=== PATIENT | male | born 1960 ===

== ENCOUNTER 2016-09-02 08:07 | Emergency (ER) | payer MEDICARE ==
[2016-09-02 08:20] VITALS: BP 133/65; PULSE 87; TEMP 97.6; BMI 28.3
== END 2016-09-02 09:59 | disposition left against medical advice (07) ==
LOC: ED 08:07
DX: R05 Cough (principal)
CPT/HCPCS: 99281

== ENCOUNTER 2016-09-12 17:08 | Emergency (ER) | payer MEDICARE ==
[2016-09-12 17:40] VITALS: BMI 29.2
[2016-09-12 17:41] VITALS: TEMP 99
[2016-09-12 18:00] LABS: AUTOMATED MONOCYTE 8.8 % (3-10); AUTOMATED NEUTROPHIL 65.2 % (45-76); MPV 7.8 fL (7.4-10.4)
[2016-09-12 18:08] LABS: VENOUS BEb 0.4 (+/- 2); VENOUS TCO2 29.4 MMOL/L (23-27)
[2016-09-12] MEDS ORDERED: REGULAR INSULIN 100 UNITS/ML - 3 ML VIAL SQ ONE ×2 (18:09→19:33)
[2016-09-12] MEDS ORDERED: REGULAR INSULIN 100 UNITS/ML - 3 ML VIAL IV ONE ×2 (18:09→18:16)
[2016-09-12] MEDS ORDERED: Insulin, Regular 100 UNITS in NS 99 ML IV SCH ×2 (18:16)
--- NOTE | 2016-09-12 18:19 | EDPRACDOC ---
- General Information Chief Complaint: Generalized Weakness Mode of Arrival: Car Home Medications: Home Medications Insulin Detemir [Levemir Flextouch] 30 unit SQ DAILY 06/20/15 Nitroglycerin [Nitrostat] 0.4 mg SL [id number] PRN 06/20/15 Pregabalin [Lyrica] 75 mg PO BID 09/19/15 Finasteride [Proscar] 5 mg PO DAILY #30 tablet 11/12/15 Atorvastatin Calcium [Lipitor] 80 mg PO HS #30 tablet 02/29/16 Carvedilol [Coreg] 6.25 mg PO BID #60 tablet 02/29/16 Duloxetine HCl [Cymbalta] 60 mg PO QAM #30 capsule. 02/29/16 Duloxetine [Cymbalta] 30 mg PO HS #30 capsule 02/29/16 Levothyroxine [Synthroid, Levoxyl] 25 mcg PO DAILY #100 tablet 02/29/16 Mirtazapine 15 mg PO HS #30 tablet 02/29/16 Tamsulosin HCl [Flomax] 0.4 mg PO BID #60 capsule 02/29/16 Ticagrelor [Brilinta] 90 mg PO BID #60 tab 02/29/16 Cranberry Fruit Concentrate [Azo Cranberry] 250 mg PO DAILY 09/12/16 Ferrous Sulfate [Iron] 325 mg PO DAILY 09/12/16 Ondansetron [Zofran Odt] 4 mg PO Q6H #20 tab.rapdis 09/12/16 Oxycodone Immediate Release [Oxycodone Immediate Release (OxyIR)] 5 mg PO Q6H PRN #14 tab 09/12/16 Allergies/Adverse Reactions: Allergies Allergy/AdvReac Type Severity Reaction Status Date / Time Penicillins Allergy Mild Rash-Genera Verified 09/12/16 17:36 lized acetaminophen [From Tylenol] Allergy Nausea only Verified 09/12/16 17:36 ibuprofen [From Motrin] Allergy Nausea only Verified 09/12/16 17:36 motrin Allergy Nausea only Uncoded 09/12/16 17:36 - History of Present Illness Complains Of: Reports: High Blood Sugar, Nausea, Polyuria, Polydipsia Relevant History: Reports: IDDM Medication Use: Reports: Normal Blood Glucose Result: 850 Vomiting - TNTC: No Associated Signs and Symptoms: Reports: Other (productive cough of yellow and green sputum.) Abdominal Pain Location: Reports: None Abdominal Pain Quality: Reports: None ED Past Medical History - History Reviewed Yes Nurses notes reviewed and agree except as marked Travel Outside of [place] in the Last 3 Months?: No - Patient Medical History Neurological History: Reports: Cerebrovascular Accident (2004) Cardiac History: Reports: Coronary Artery Disease (Drug-eluting stent in August of 2015 in proximal RCA), Hypertension, Heart Attack (2015), Stress Test (Abnormal), Hypercholesterolemia Respiratory History: Denies: Asthma, COPD GI/ History: Reports: Urinary Tract Infection, BPH (With bladder outlet obstruction and urinary retention). Denies: Ulcer Musculoskeletal History: Reports: Arthritis (right knee, hands) Psychological History: Reports: Depression, Anxiety, Substance Use Disorder (THC ) Systemic History: Reports: Diabetes (IDDM). Denies: Cancer Surgical History: Reports: Other (Back Operation) - Family Medical History Reports: Hypertension, Diabetes, Cancer. Denies: Stroke, Cardiac Disorders - Social Medical History Smoking Status: Former smoker Social History: Reports: Substance Use Disorder (THC) ETOH: None Substance Abuse: None Lives With: Other Lives In: Home EDM Review of Systems - Review of Systems ROS Negative Except as Marked: Yes All systems reviewed and were negative except as marked Constitutional: Weakness. negative: Chills, Fever, Fatigue, Loss of Appetite Eyes: No Symptoms Reported. negative: Redness, Blurred Vision, Double Vision, Discharge, Pain, Light Sensitive, Photophobia Ears: No Symptoms Reported. negative: Pain, Hearing Loss, Drainage, Ear Pulling Throat: No Symptoms Reported. negative: Pain, Swelling Nose: No Symptoms Reported. negative: Congestion, Bleeding, Discharge, Injection, Swelling, Deformity, Ecchymosis, Tender, Abrasion, Laceration Mouth: Dry Mouth. negative: Pain, Drooling Respiratory: No Symptoms Reported. negative: Cough, Brassy Cough, Barky Cough, Shortness of Breath, Wheezing, Hemoptysis Cardiovascular: No Symptoms Reported. negative: Chest Pain, Palpitations, Syncope, Edema, Orthopnea, PND, Skin Mottling, Cyanosis Gastrointestinal: Nausea. negative: Constipation, Diarrhea, Formula Intolerance , Melena, Pain, Vomiting Genitourinary: Frequency. negative: Bleeding, Dysuria, Discharge, Hematuria, , Testicular Pain Neurological: No Symptoms Reported. negative: Headache, Dizziness, Seizure, Numbness, Weakness, Speech Difficulty, Gait Difficulty Musculoskeletal: No Symptoms Reported. negative: Neck, Chestwall, Ribs, Back, Shoulder, Arm, Elbow, Forearm, Wrist, Hand, Pelvis, Hip, Femur, Knee, Leg, Ankle , Foot Integumentary: No Symptoms Reported. negative: Itching, Rash, Bruising, Wound Allergic/Immunologic: No Symptoms Reported. negative: Hives, Itching Hematologic: No Symptoms Reported. negative: Lymphadenopathy, Easy Bruising, Easy Bleeding Endocrine: No Symptoms Reported. negative: Weight Gain, Weight Loss Psychiatric: No Symptoms Reported. negative: Anxiety, Depression, Hallucinations, Insomnia, Suicidal - Physical Exam Constitutional: Alert (Awake), No apparent distress Oriented to: Time, Person, Place Last recorded Vital Signs: Last Vital Signs Temp 99.0 F 09/12/16 17:36 Pulse 66 09/12/16 17:36 Resp 20 09/12/16 17:36 BP 153/69 09/12/16 17:36 Pulse Ox Oxygen Pulse Oxygen Saturation O2 Device Room Air Oxygen Flow Rate Fraction of Inspired Oxygen ( FIO2) - HEENT Head: Normal ( normocephalic) Eye Exam: Normal (PERRL, EOMI, Sclera white) Oropharynx: Membranes Dry Tympanic Membrane: Normal ENT EAC: Normal TMJ: Normal Nose: No Symptoms Reported (septum midline) Neck: Normal (FROM, trachea at midline) - Respiratory/Cardiovascular Respiratory: Other (COARSE BREATH SOUNDS BILATERAL) Cardiovascular: Normal (RRR without murmur, gallop or rub) - GI Auscultation: Normal (NABS) Palpation: Normal (Soft,No rebound or guarding, non distended) Tenderness: Non tender Crowder's Sign: Negative - Bladder: Normal - Musculoskeletal Back: Normal (Non-Tender) Extremities: Normal (Normal tone, Pulses 2+ No cyanosis or edema, FROM) - Integumentary Skin: Normal, Warm, Dry Lymphatics: Normal (no adenopathy) - Neurologic Memory Impaired: Normal Motor Function: Normal (Normal tone, Pulses 2+ No cyanosis or edema, FROM) Cranial Nerve: Normal (CN II-X11 intact sensation, strength 5/5) Cerebellar: Normal Mood Description: Normal Perception: Normal - Differential Diagnosis Dehydration, Diabetic Ketoacidosis, Electrolyte Abnormality, Hyperglycemia, UTI , Other (PNEUMONIA) - Re-evaluation Re-evaluation 1 Re-evaluation Time: 20:54 (INSULIN DRIP STOPPED PT'S LAST CB IN THE 80'S. WILL REPEAT BMP AND VBG TO ASSESS STATUS) Re-evaluation 2 Re-evaluation Time: 21:59 (GLUCOSE NOW 77, PH 7.35 RENAL FUNCTION IMPROVED AFTER 2 LITERS. PT FEELING BETTER. ) - Results 09/12/16 17:45 09/12/16 21:03 WBC 4.5 xk/uL (3.8-10.8) 09/12/16 17:45 RBC 3.93 xM/uL (4.70-6.10) L 09/12/16 17:45 Hgb 11.8 g/dL (14.0-18.0) L 09/12/16 17:45 Hct 35.1 % (42-52) L 09/12/16 17:45 MCV 89 fL (80-94) 09/12/16 17:45 MCH 30.1 pg (27-32) 09/12/16 17:45 MCHC 33.8 g/dl (33-36) 09/12/16 17:45 RDW 13.5 % (11.5-14.5) 09/12/16 17:45 Plt Count 209 xk/uL (130-400) 09/12/16 17:45 MPV 7.8 fL (7.4-10.4) 09/12/16 17:45 Neut % (Auto) 65.2 % (45-76) 09/12/16 17:45 Lymph % (Auto) 24.0 % (17-44) 09/12/16 17:45 [place] % (Auto) 8.8 % (3-10) 09/12/16 17:45 Eos % (Auto) 1.0 % (0-5) 09/12/16 17:45 Baso % (Auto) 1.0 % (0-2) 09/12/16 17:45 Absolute Neuts (auto) 2.93 xk/uL (1.7-8.2) 09/12/16 17:45 Absolute Lymphs (auto) 1.08 xk/uL (0.65-4.75) 09/12/16 17:45 VBG pH 7.31 pH UNITS (7.32-7.43) L 09/12/16 17:45 Mixed VBG pCO2 55.0 mmHg (40-60) 09/12/16 17:45 Mixed VBG pO2 < 31.0 mmHg (30-55) 09/12/16 17:45 Mixed VBG HCO3 27.7 MMOL/L (22-27) H 09/12/16 17:45 Mixed VBG Total CO2 29.4 MMOL/L (23-27) H 09/12/16 17:45 Mixed VBG Base Excess 0.4 (+/- 2) 09/12/16 17:45 POC Capillary Glucose 573 MG/DL (70-99) H* 09/12/16 17:38 Lab Results 09/12/16 09/12/16 09/12/16 17:45 17:45 17:38 WBC 4.5 RBC 3.93 L Hgb 11.8 L Hct 35.1 L MCV 89 MCH 30.1 MCHC 33.8 RDW 13.5 Plt Count 209 MPV 7.8 Neut % (Auto) 65.2 Lymph % (Auto) 24.0 [place] % (Auto) 8.8 Eos % (Auto) 1.0 Baso % (Auto) 1.0 Absolute Neuts (auto) 2.93 Absolute Lymphs (auto) 1.08 VBG pH 7.31 L Mixed VBG pCO2 55.0 Mixed VBG pO2 < 31.0 Mixed VBG HCO3 27.7 H Mixed VBG Total CO2 29.4 H Mixed VBG Base Excess 0.4 POC Capillary Glucose 573 H* - Diagnostic Imaging CXR Image interpreted by: Radiologist IMPRESSION: Low volume film without focal airspace consolidation or pulmonary edema. - Additional Information WILL INCREASE LEVEMIR TO 40 UNITS DAILY, HAVE PT FOLLOW UP WITH PCP IN 2-3 DAYS. Decision Time to Discharge: 22:00 - Departure Disposition: Home Condition: Stable Final Diagnosis: Hyperglycemia, Dehydration Instructions: Weakness (General), Dehydration (ED), Diabetic Hyperglycemia (ED) Education/Counseling Given To: Patient Education/Counseling Given Regarding: Diagnosis, Treatment, Prognosis, Follow Up Referrals: Angelica Agosto MD [Primary Care Provider] - One Week Prescriptions: Ondansetron [Zofran Odt] 4 mg PO Q6H #20 tab.rapdis Oxycodone Immediate Release [Oxycodone Immediate Release (OxyIR)] 5 mg PO Q6H PRN #14 tab PRN Reason: Pain Additional Instructions: INCREASE YOUR INSULIN TO 40UNITS DAILY, FOLLOW UP WITH YOUR PRIMARY CARE DOCTOR IN 1-3 DAYS.
[2016-09-12] MEDS: NS 1,000 ML IV SCH (18:32)
[2016-09-12 18:53] LABS: LEUKOCYTES/URINE TRACE (NEGATIVE); NITRITE/URINE NEG (NEGATIVE); RBC/URINE 0-2 (0-2); URINE OCCULT BLOOD NEG (NEG/TRACE)
[2016-09-12 18:56] LABS: BLOOD UREA NITROGEN 35 MG/DL (9-20); CALC CORRECTED 8.6 MG/DL (8.4-10.2); CALCIUM 8.3 MG/DL (8.4-10.2); CALCULATED OSMOLALITY 288 MOs/Kg (270-290); CHLORIDE 95 mEq/L (98-107); SODIUM LEVEL 131 mEq/L (137-146); TOTAL PROTEIN 7.2 G/DL (6.3-8.2)
[2016-09-12 19:09] LABS: GLUCOSE 584 MG/DL (70-99)
[2016-09-12] MEDS ORDERED: NS 1,000 ML IV ONE (19:32)
--- NOTE | 2016-09-12 19:52 | DIRPT ---
CLINICAL DATA: Elevated CBG EXAM: PORTABLE CHEST 1 VIEW COMPARISON: 04/16/2016 FINDINGS: Low volume film. The lungs are clear wiithout focal pneumonia, edema, pneumothorax or pleural effusion. Nodule seen of the right upper lung on the previous study is not evident today although there is a cardiac lead in the same region. The cardio pericardial silhouette is enlarged. Old left-sided rib fractures noted. Telemetry leads overlie the chest. IMPRESSION: Low volume film without focal airspace consolidation or pulmonary edema. Electronically Signed By: Nic Dobbs M.D. On: 09/12/2016 19:49
[2016-09-12] MEDS ORDERED: ONDANSETRON HCL 4 MG/2 ML VIAL IV ONE (20:24)
[2016-09-12] MEDS ORDERED: MORPHINE 4 MG/ML INJECTION IV ONE (20:24)
[2016-09-12 21:35] LABS: VENOUS BEb -4.7 (+/- 2); VENOUS TCO2 21.5 MMOL/L (23-27)
[2016-09-12 21:41] LABS: BLOOD UREA NITROGEN 31 MG/DL (9-20); CALCIUM 8.2 MG/DL (8.4-10.2); CALCULATED OSMOLALITY 279 MOs/Kg (270-290); CHLORIDE 109 mEq/L (98-107); GLUCOSE 77 MG/DL (70-99); SODIUM LEVEL 142 mEq/L (137-146)
[2016-09-12 22:29] VITALS: BP 133/66; PULSE 72
== END 2016-09-12 22:26 | disposition home or self-care (01) ==
LOC: ED 17:08
DX: E11.65 Type 2 diabetes mellitus with hyperglycemia (principal); E86.0 Dehydration
CPT/HCPCS: 36415; 71010; 80048; 80053; 81001; 82803; 82962; 83605; 85025; 87086; 96361; 96365; 96366; 96372; 96375; 99283; A9270; J1815; J2270; J2405; J7030; J3490